=== PATIENT | male | born 1970 | race Caucasian/White ===

== ENCOUNTER 2020-03-29 15:56 | Emergency (ER) | payer MEDICAID ==
[~2020-03-29] VITALS: Ht 167.6 cm; Wt 78.9 kg
[2020-03-29 16:27] VITALS: Ht 167.6 cm; Wt 78.9 kg
[2020-03-29 18:00] VITALS: BP 145/93
== END 2020-03-29 18:30 | disposition home or self-care (01) ==
LOC: ED 15:56
DX: S39.012A Strain of muscle, fascia and tendon of lower back, initial encounter (principal); R03.0 Elevated blood-pressure reading, without diagnosis of hypertension; X58.XXXA Exposure to other specified factors, initial encounter; Y93.89 Activity, other specified; Y92.89 Other specified places as the place of occurrence of the external cause; Y99.8 Other external cause status
CPT/HCPCS: J1885